=== PATIENT | male | born 1975 | race Caucasian/White ===

== ENCOUNTER 2016-12-12 04:35 | Emergency (ER) | payer BC ==
[2016-12-22] MEDS ORDERED: TESSALON PERLE100 MG PO (08:53)
[2016-12-22] MEDS ORDERED: ZOFRAN4 MG PO (08:53)
[2016-12-22] MEDS ORDERED: TAMIFLU75 MG PO (08:54)
[2016-12-22] MEDS ORDERED: TYLENOL325 MG PO (08:54)
[2016-12-22] MEDS ORDERED: VIBRAMYCIN100 MG PO (08:55)
== END 2016-12-12 06:52 | disposition home or self-care (01) ==
LOC: ER 04:35
DX: J20.9 Acute bronchitis, unspecified (principal); E86.0 Dehydration; R00.0 Tachycardia, unspecified; F17.220 Nicotine dependence, chewing tobacco, uncomplicated; F17.210 Nicotine dependence, cigarettes, uncomplicated; K21.9 Gastro-esophageal reflux disease without esophagitis; Z88.0 Allergy status to penicillin; Z88.1 Allergy status to other antibiotic agents; Z88.2 Allergy status to sulfonamides; Z88.5 Allergy status to narcotic agent; Z91.040 Latex allergy status
CPT/HCPCS: 36415; 87502; 87651; 96360; 96361; J1100

== ENCOUNTER 2016-12-14 12:41 | Emergency (ER) | payer BC ==
[2016-12-22] MEDS ORDERED: ZOFRAN4 MG PO (08:53)
[2016-12-22] MEDS ORDERED: TESSALON PERLE100 MG PO (08:53)
[2016-12-22] MEDS ORDERED: TYLENOL325 MG PO (08:54)
[2016-12-22] MEDS ORDERED: TAMIFLU75 MG PO (08:54)
[2016-12-22] MEDS ORDERED: VIBRAMYCIN100 MG PO (08:55)
== END 2016-12-14 13:34 | disposition home or self-care (01) ==
LOC: ER 12:41
DX: J11.1 Influenza due to unidentified influenza virus with other respiratory manifestations (principal); R19.7 Diarrhea, unspecified; K21.9 Gastro-esophageal reflux disease without esophagitis; F17.220 Nicotine dependence, chewing tobacco, uncomplicated; Z88.0 Allergy status to penicillin; Z88.1 Allergy status to other antibiotic agents; Z88.2 Allergy status to sulfonamides; Z88.5 Allergy status to narcotic agent
CPT/HCPCS: 87502

== ENCOUNTER 2016-12-17 14:09 | Inpatient (IN) | payer BC ==
[2016-12-22] MEDS ORDERED: ZOFRAN4 MG PO (08:53)
[2016-12-22] MEDS ORDERED: TESSALON PERLE100 MG PO (08:53)
[2016-12-22] MEDS ORDERED: TYLENOL325 MG PO (08:54)
[2016-12-22] MEDS ORDERED: TAMIFLU75 MG PO (08:54)
[2016-12-22] MEDS ORDERED: VIBRAMYCIN100 MG PO (08:55)
== END 2016-12-20 10:40 | disposition home or self-care (01) | DRG 871 ==
LOC: ER 14:09 → MED 16:20
PROVIDERS: ADMIT Internal Medicine
PROC: 3E0234Z Introduction of Serum, Toxoid and Vaccine into Muscle, Percutaneous Approach (ICD-10-PCS; principal; 2016-12-20)
DX: A41.9 Sepsis, unspecified organism (principal); J10.00 Influenza due to other identified influenza virus with unspecified type of pneumonia; F17.210 Nicotine dependence, cigarettes, uncomplicated; B34.9 Viral infection, unspecified; D69.6 Thrombocytopenia, unspecified; B95.62 Methicillin resistant Staphylococcus aureus infection as the cause of diseases classified elsewhere; Z88.5 Allergy status to narcotic agent; Z88.1 Allergy status to other antibiotic agents; Z88.0 Allergy status to penicillin; Z88.2 Allergy status to sulfonamides; Z91.040 Latex allergy status; Z23 Encounter for immunization
CPT/HCPCS: 36415; 94664; J1885; J3370; J7050

== ENCOUNTER 2016-12-17 14:09 | Emergency (ER) | payer BC ==
[2016-12-22] MEDS ORDERED: ZOFRAN4 MG PO (08:53)
[2016-12-22] MEDS ORDERED: TESSALON PERLE100 MG PO (08:53)
[2016-12-22] MEDS ORDERED: TYLENOL325 MG PO (08:54)
[2016-12-22] MEDS ORDERED: TAMIFLU75 MG PO (08:54)
[2016-12-22] MEDS ORDERED: VIBRAMYCIN100 MG PO (08:55)
== END 2016-12-17 16:19 | disposition critical access hospital (66) ==
LOC: ER 14:09
DX: J11.00 Influenza due to unidentified influenza virus with unspecified type of pneumonia (principal); B34.9 Viral infection, unspecified; K21.9 Gastro-esophageal reflux disease without esophagitis; F17.220 Nicotine dependence, chewing tobacco, uncomplicated; Z88.0 Allergy status to penicillin; Z88.1 Allergy status to other antibiotic agents; Z88.2 Allergy status to sulfonamides; Z88.5 Allergy status to narcotic agent; Z91.040 Latex allergy status
CPT/HCPCS: 96361; 96365; 96375

== ENCOUNTER 2016-12-20 23:18 | Emergency (ER) | payer SELFPAY ==
[2016-12-22] MEDS ORDERED: TESSALON PERLE100 MG PO (08:53)
[2016-12-22] MEDS ORDERED: ZOFRAN4 MG PO (08:53)
[2016-12-22] MEDS ORDERED: TAMIFLU75 MG PO (08:54)
[2016-12-22] MEDS ORDERED: TYLENOL325 MG PO (08:54)
[2016-12-22] MEDS ORDERED: VIBRAMYCIN100 MG PO (08:55)
== END 2016-12-21 02:40 | disposition home or self-care (01) ==
LOC: ER 23:18
DX: J10.08 Influenza due to other identified influenza virus with other specified pneumonia (principal); K21.9 Gastro-esophageal reflux disease without esophagitis; E78.5 Hyperlipidemia, unspecified; F17.220 Nicotine dependence, chewing tobacco, uncomplicated; Z88.0 Allergy status to penicillin; Z88.1 Allergy status to other antibiotic agents; Z88.2 Allergy status to sulfonamides; Z88.5 Allergy status to narcotic agent; Z91.040 Latex allergy status
CPT/HCPCS: 36415